=== PATIENT | male | born 1980 | race Hispanic/Latino ===

== ENCOUNTER 2020-09-02 11:50 | Emergency (ER) | payer BC, OTHER ==
[2020-09-02] MEDS ORDERED: FAMOTIDINE 20MG TAB 20 MG TAB ONE (12:30)
[2020-09-02] MEDS ORDERED: MAG HYDROX/AL HYDROX/SIMETH ES 30 ML SUSP UDCUP ONE (12:30)
[2020-09-02] MEDS ORDERED: LIDOCAINE HCL 2% VISCOUS 15 ML UDCUP ONE (12:31)
[2020-09-02 13:09] LABS: BASOPHILS % (AUTO) 0.7 % (0.0-5.0); HEMATOCRIT 44.3 % (42-54); LYMPHOCYTES % (AUTO) 31.7 % (21.0-51.0); MEAN CORPUSCULAR HEMOGLOBIN 28.6 pg (27.0-33.0); MEAN CORPUSCULAR HGB CONC 33.9 g/dL (32.0-36.0); MEAN CORPUSCULAR VOLUME 84.5 fL (79-99); MONOCYTES % (AUTO) 7.2 % (3.0-13.0); PLATELET COUNT (AUTO) 178 K/uL (130-400); RED BLOOD CELL COUNT(AUTO) 5.24 MIL/uL (4.50-6.20); RED CELL DISTRIBUTION WIDTH 12.5 % (11.0-15.5); WHITE BLOOD COUNT (AUTO) 5.6 K/uL (4.8-10.8)
[2020-09-02 13:14] LABS: APPEARANCE,URINE Clear (CLEAR); BILIRUBIN,URINE Negative (NEGATIVE); COLOR,URINE Yellow (YELLOW); GLUCOSE, URINE (UA) Negative (NEGATIVE); KETONES,URINE Negative (NEGATIVE); LEUKOCYTE ESTERASE ,URINE Negative (NEGATIVE); NITRATE,URINE Negative (NEGATIVE); OCCULT BLOOD,URINE Negative (NEGATIVE); PROTEIN,URINE Negative (NEGATIVE); UROBILINOGEN,URINE 0.2 mg/dL (0.2-1.0)
[2020-09-02 13:23] LABS: CREATININE 0.9 mg/dL (0.5-1.5); POTASSIUM 3.6 mmol/L (3.5-5.1)
[2020-09-02 13:27] LABS: ALBUMIN 4.3 g/dL (3.5-5.0); BILIRUBIN,TOTAL 0.7 mg/dL (0.2-1.0); TOTAL PROTEIN, SERUM 8.2 g/dL (6.0-8.3)
[2020-09-02] MEDS ORDERED: MORPHINE SULFATE 2 MG/ML 1ML SYG ONE (13:28)
[2020-09-02] MEDS ORDERED: ONDANSETRON HCL 4 MG/2 ML VIAL ONE (13:28)
== END 2020-09-02 14:08 | disposition home or self-care (01) ==
LOC: EDH 11:50
DX: K29.70 Gastritis, unspecified, without bleeding (principal); K82.4 Cholesterolosis of gallbladder
CPT/HCPCS: 36415; 71045; 76705; 80053; 81003; 83690; 84484; 85025; 93005; 96374; 96375; 99285; J2405